=== PATIENT | male | born 2000 | race Hispanic/Latino ===

== ENCOUNTER 2025-03-30 21:56 | Emergency (ER) | payer OTHER, SELFPAY ==
[2025-03-30 21:59] VITALS: BP 145/90
[2025-03-31 02:10] LABS: % Basophils 0.6 % (0-2); % Eosinophils 3.7 % (0-6); % Immature Granulocytes 0.1 % (0-0.5); % Lymphocytes 39.2 % (20.5-51.1); % Monocytes 11.1 % (1.7-9.3); % Neutrophils 45.3 % (42.2-75.2); Absolute Eosinophils 0.3 10^3/uL (0-0.7); Absolute Lymphocytes 2.7 10^3/uL (1.2-3.4); Absolute Monocytes 0.8 10^3/uL (0.1-0.6); Absolute Neutrophils 3.1 10^3/uL (1.4-6.5); Hemoglobin 14.3 g/dL (13.0-18.0); Mean Corpuscular Hgb 28.9 pg (27.0-31.0); Mean Platelet Volume 10.1 fL (7.4-10.4); Nucleated Red Blood Cells % 0 % (-); Platelet Count 238 10^3/uL (130-400); Red Blood Cell Count 4.94 10^6/uL (4.70-6.10); Red Cell Dist. Width 12.9 % (11.5-14.5); White Blood Cell Count 6.8 10^3/uL (4.8-10.8)
[2025-03-31 02:12] VITALS: BMI 45.6
[2025-03-31 02:22] LABS: ALT (SGPT) 51 U/L (0-50); AST (SGOT) 34 U/L (17-59); Albumin 4.5 g/dl (3.5-5.0); Alkaline Phosphatase 63 U/L (38-126); Blood Urea Nitrogen 16 mg/dl (9-20); Calcium 9.5 mg/dl (8.4-10.2); Carbon Dioxide 25 mmol/L (22-30); Chloride 109 mmol/L (98-107); Estimated Creatinine Clearance > 125 ml/min; Glucose 94 mg/dl (70-99); Potassium 3.8 mmol/L (3.5-5.1); Sodium 141 mmol/L (135-145); Total Bilirubin 0.7 mg/dl (0.2-1.3); Total Protein 7.4 g/dl (6.3-8.2); eGFR > 60.00
[2025-03-31 02:35] LABS: Troponin I < 0.012 ng/ml
--- NOTE | 2025-03-31 02:37 | ED.GENMED ---
History of Present Illness
General
Chief Complaint: Anxiety
Source: patient
Exam Limitations: none
Time Seen by Provider: 03/31/25 01:10
Nursing documentation reviewed up to this point in time: agreed with
History of Present Illness
History of Present Illness:
The patient is a pleasant 24-year-old man who reports that he has been under a lot of stress lately. Patient reports that he is getting in about a month and has had a lot of family stress. Patient reports he is here to just make sure he is
okay. Patient reports intermittent chest pain and nausea for weeks. Patient reports he has a history of JUSTIN and wants to make sure his liver is okay. Patient reports that he feels better at this time. He denies current chest pain currently. He
denies shortness of breath, leg pain and leg swelling. He currently lives with his parents and feels safe with them. He denies suicidal and homicidal thoughts.
Past History
Past History
ED Past Medical History: Asthma and Other (JUSTIN)
ED Past Surgical History: Other
Social History
Tobacco: Non-smoker
Alcohol: None
Drug: None
Personal: Partner
Living: with family
Employment: Student
Family History
Family History: Other
Review of Systems
Review of Systems
Allergies reviewed?: Yes
All Other Systems: ROS reviewed and negative except as documented in HPI and ROS
Constitutional: Reports no symptoms
EENT: Reports no symptoms
Respiratory: Reports no symptoms
Cardiac: Reports no symptoms
ABD/GI: Reports nausea
: Reports no symptoms
Musculoskeletal: Reports muscle pain (Right-sided neck pain)
Skin: Reports no symptoms
Neurological: Reports no symptoms
Endocrine: Reports no symptoms
Hematologic/Lymphatic: Reports no symptoms
Psychiatric: Reports anxiety
Phy Exam
Physical Exam
Physical Exam:
Physical Exam
General: no apparent distress, not acutely ill. Well and comfortable appearing
Neck: supple. No meningismus. Nontender C-spine
Heart: s1/s2 regular rate and rhythm, no murmur. equal radial pulses.
Lungs: no acute respiratory distress. clear bilaterally
Abdomen: normal bowel sounds. not tender. no CVAT
Neuro: alert and oriented. no focal neurological deficits
Skin: no rash
Psychiatric: well kept. interactive and cooperative
Extremities: no edema. no calf tenderness. negative homans. good distal pulses
Course
Orders/Labs/Results
Orders:
Orders
03/31/25 01:53
Electrocardiogram (*1) Urgent
Reason for Study: Chest Pain
EKG- Treatment ONCE
03/31/25 02:02
Complete Blood Count/With Diff Urgent
Comprehensive Metabolic Panel Urgent
Troponin I Urgent
Abnormal Lab Results
03/31/25
02:02
Absolute Monos (auto) 0.8 H 10^3/uL
(0.1-0.6)
Monocytes % 11.1 H %
(1.7-9.3)
Chloride 109 H mmol/L
(98-107)
ALT 51 H U/L
(0-50)
03/31/25 02:02
03/31/25 02:02
Vital Signs
Initial and Last Documented VS:
Initial Vital Signs
Temp Pulse Resp BP Pulse Ox
98.2 F 61 20 145/90 97
03/30/25 21:59 03/30/25 21:59 03/30/25 21:59 03/30/25 21:59 03/30/25 21:59
Last Documented Vital Signs
Temp Pulse Resp BP Pulse Ox
98.2 F 61 20 145/90 97
03/30/25 21:59 03/30/25 21:59 03/30/25 21:59 03/30/25 21:59 03/30/25 21:59
MDM/Problems Addressed
Differential Diagnosis Includes:
Generalized anxiety disorder, acute situational anxiety, acute coronary syndrome, PE
MDM/Problems Addressed:
Patient presents with feelings of anxiety related to family issues as well as weeks of intermittent chest pain and nausea
*Pulse Oximetry
Patient hypoxic: no
*EKG
Interpreted by ED Provider?: Yes
Interpretation: abnormal
Comparison EKG: no comparison EKG present
Rate: normal
Rhythm: sinus
[place]: normal axis
Interval: normal interval
QRS Pattern: normal QRS
Ischemia: non-specific ST changes
*[place] Interpretation
Rate: normal
Interpretation: normal
Rhythm: sinus
*Critical Care Note
Total Time (30-74mins, 75-104mins- exclusive of procedures): Not Applicable
Data Reviewed
Source: patient
Patient Management
Social determinants of health affecting care: Living situation and Strong social support
Escalation/DeEscalation of care consider admission/obs:
Patient denies suicidal and homicidal thoughts. He reports that his anxiety is much better knowing that he is medically stable. Patient looks extremely well. Lungs are clear and there is no sign of pneumonia. He has no pleuritic chest pain to
suggest PE
ED Attending Note
-
Portions of this chart may have been created with voice recognition software.� Occasional wrong word or��sound alike� substitutions may have occurred due to the inherent limitations of voice recognition software.
Discharge Plan
Departure
Patient Disposition: Home (Routine Discharge)
Date of Disposition: 03/31/25
Time of Disposition: 02:37
Patient with high blood pressure during this ER visit?: Yes
Condition: Good
Covid-19: Not Applicable
Discharge Problem:
Acute anxiety
Instructions: Anxiety in adults - ED discharge instructions, BLOOD PRESSURE
Prescriptions:
No Action
albuterol sulfate [ProAir HFA] 8.5 GM HFA aerosol inhaler
8.5 gm IH Q4HPRN PRN (Reason: sob)
loratadine 10 MG tablet
10 mg PO DAILY
prednisone 20 MG tablet
40 mg PO DAILY Qty: 10 0RF
citalopram 20 MG tablet
20 mg PO DAILY Qty: 30 0RF
Referrals:
Irwin Reynoso MD [Family Provider, Internal Medicine]
Interventions
Interventions:
*Risk Screen - Suicide Last Done: 03/30/25 22:46
*General Assessment Last Done: 03/30/25 21:59
*Neglect/Abuse Screening Last Done: 03/30/25 22:46
*ED COVID-19 Vaccine History Last Done: 03/30/25 22:46
ED-Psychological Assessment Last Done: 03/30/25 22:46
Discharge Date and Time
Print Language: TRINIDADIAN
== END 2025-03-31 02:50 | disposition home or self-care (01) ==
LOC: EMR 21:56
PROVIDERS: EMERGENCY PHYSICIAN Emergency Medicine; FAMILY PHYSICIAN Internal Medicine
DX: F41.9 Anxiety disorder, unspecified (principal); R03.0 Elevated blood-pressure reading, without diagnosis of hypertension; Z63.8 Other specified problems related to primary support group
CPT/HCPCS: 99284; 80053; 84484; 85025; 93005